=== PATIENT | female | born 1940 | race Caucasian/White ===

== ENCOUNTER 2016-09-25 23:35 | Inpatient (IN) | payer MEDICARE, BC ==
[~2016-09-25] VITALS: Ht 149.9 cm; Wt 57.6 kg
[~2016-09-25 23:35] MED LIST: ACET650T11 PO; ACID1TAB4 PO; ASCO500T10 PO; BENZ9GEL3 MM; CALC600T12 PO; CHOL200013 PO; CHOL4PAC9 PO; CYAN100T3 PO; DIPH50CA37 PO; LEVO175T7 PO; LOPE2CAP GT; LORA0.5T PO; MEMA5TAB PO; OMEP20TA68 PO; PROT946L PO; QUET25TA PO; ROPI0.253 PO; SERT25TA5 GT; TEMA7.5C2 PO; VALP250S11 PO
[2016-09-25] MEDS ORDERED: DIVA500T4 PO (23:58)
[2016-09-26] MEDS ORDERED: LEVO150T8 PO
[2016-09-26] MEDS ORDERED: MAGN400O4 PO (00:06)
[2016-09-26] MEDS ORDERED: HYDR-3326 PO (00:08)
[2016-09-26] MEDS ORDERED: PANT40TA2 PO (00:10)
[2016-09-26] MEDS ORDERED: TEMA7.5C PO (00:14)
[2016-09-26] MEDS ORDERED: RISP1TAB7 PO (00:16)
[2016-09-26] MEDS ORDERED: SIMV10TA6 PO (00:19)
[2016-09-26 00:21] LABS: BASOPHILS # (AUTO) 0.1 K/uL (0.0-0.2); BASOPHILS % (AUTO) 1.5 % (0.0-2.0); EOSINOPHILS # (AUTO) 0.1 K/uL (0.0-0.7); EOSINOPHILS % (AUTO) 1.6 % (0.0-7.0); HEMATOCRIT 37.4 % (37.0-47.0); HEMOGLOBIN 12.2 g/dL (12.0-16.0); LYMPHOCYTES # (AUTO) 1.4 K/uL (0.8-4.8); LYMPHOCYTES % (AUTO) 20.6 % (20.5-51.5); MEAN CORPUSCULAR HGB CONC 33 g/dL (32.0-37.0); MEAN CORPUSCULAR VOLUME 82.6 fL (81.0-99.0); MONOCYTES % (AUTO) 14.4 % (0.0-11.0); NEUTROPHILS # (AUTO) 4.4 K/uL (1.8-8.9); NEUTROPHILS % (AUTO) 61.9 % (38.5-71.5); PLATELET COUNT (AUTO) 202 K/uL (150-450); RED BLOOD CELL COUNT(AUTO) 4.52 MIL/uL (4.20-5.40); RED CELL DISTRIBUTION WIDTH 13.7 % (11.5-14.5)
[2016-09-26 00:23] LABS: CALCIUM 8.9 mg/dL (8.5-10.1); CARBON DIOXIDE 30 mmol/L (21-32); CHLORIDE 104 mmol/L (98-107); CREATININE 0.9 mg/dL (0.6-1.3); GLUCOSE 74 mg/dL (74-106); POTASSIUM 3.5 mmol/L (3.5-5.1); SODIUM SERUM 142 mmol/L (136-145); UREA NITROGEN, BLOOD 13 mg/dL (7-18)
[2016-09-26 00:35] LABS: *BILIRUBIN,URIN NEGATIVE (NEGATIVE); *BLOOD, URINE NEGATIVE (NEGATIVE); *CLARITY,URINE SLIGHTLY CLOUDY (CLEAR); *COLOR,URINE YELLOW (YELLOW); *KETONES,URINE NEGATIVE (NEGATIVE); *PROTEIN,URINE NEGATIVE (NEGATIVE); *UROBILINOGEN,URINE 0.2 E.U./dl (NORMAL); LEUKOCYTE ESTERASE ,URINE 1+ (NEGATIVE); NITRITE, URINE NEGATIVE (NEGATIVE); UGLUCOSE NEGATIVE (NEGATIVE)
[2016-09-26 00:38] LABS: THYROID STIMULATING HORMONE 2.526 mIU/mL (0.358-3.740)
[2016-09-26 00:38] LABS: *AMPHETAMINE, URINE NEGATIVE (NEGATIVE); *BARBITURATE, URINE NEGATIVE (NEGATIVE); *CANNABINOID, URINE NEGATIVE (NEGATIVE); *COCCAINE, URINE NEGATIVE (NEGATIVE); *OPIATE, URINE NEGATIVE (NEGATIVE); *PHENCYCLIDINE SCREEN,URINE NEGATIVE (NEGATIVE)
[2016-09-26] MEDS ORDERED: TUBE5VIA2 ID (00:39)
[2016-09-26 00:40] LABS: ACETAMINOPHEN < 2.0 ug/mL (10-30); ALANINE AMINOTRANSFERASE 12 U/L (14-59); ALBUMIN 2.7 g/dL (3.4-5.0); ALKALINE PHOSPHATASE 70 U/L (50-136); ASPARTATE AMINOTRANSFERASE 18 U/L (15-37); BILIRUBIN,DIRECT < 0.1 mg/dL (0.0-0.2); BILIRUBIN,TOTAL 0.2 mg/dL (0.2-1.0); VALPROIC ACID 10 ug/mL (50-100)
[2016-09-26 00:42] LABS: ETHANOL < 3 MG/DL (0-0)
[2016-09-26] MEDS ORDERED: SERT50TA PO (00:42)
[2016-09-26 00:47] LABS: BACTERIA,URINE MODERATE /HPF (NONE SEEN); SQUAMOUS EPITHELIAL CELL,UR FEW /HPF (NONE SEEN); WBC,URINE 20-50 /HPF (0-3)
[2016-09-26] MEDS ORDERED: MAG HYDROX/AL HYDROX/SIMETH 30 ML LIQUID UDC PO PRN (01:30)
[2016-09-26] MEDS ORDERED: ACETAMINOPHEN 325 MG TABLET PO PRN (01:30)
[2016-09-26] MEDS ORDERED: MAGNESIUM HYDROXIDE 30 ML LIQUID UDC PO PRN (01:30)
[2016-09-26] MEDS ORDERED: LORAZEPAM 0.5 MG TABLET PO PRN (01:30)
[2016-09-26] MEDS ORDERED: TEMAZEPAM 7.5 MG CAPSULE PO PRN (01:30)
[2016-09-26 02:25] VITALS: BP 145/83
[2016-09-26 07:30] VITALS: BP 112/64
[2016-09-26] MEDS ORDERED: DIVALPROEX 500 MG TABLET.DR PO SCH (15:00)
[2016-09-26] MEDS: risperiDONE 1 MG TABLET PO SCH ×2 (15:36→20:49)
[2016-09-26] MEDS: SERTRALINE HCL 50 MG TABLET PO SCH (15:36)
[2016-09-26 16:00] VITALS: BP 126/67
[2016-09-26] MEDS ORDERED: LOPERAMIDE HCL 2 MG CAPSULE GT PRN (16:30)
[2016-09-26] MEDS ORDERED: HYDROCODONE/APAP 5-325MG TABLET PO PRN (16:30)
[2016-09-26] MEDS ORDERED: LOPERAMIDE HCL 2 MG CAPSULE PO PRN (16:45)
[2016-09-26] MEDS ORDERED: Medication Not On Formulary EA (Protein Supplement (Promod) 30 ML) PO SCH (17:00)
[2016-09-26] MEDS: PROTEIN SUPPLEMENT (PROSTAT) 30 ML LIQUID PO SCH (17:00)
[2016-09-26] MEDS ORDERED: CHOLECALCIFEROL 2000 UNIT PO SCH (17:00)
[2016-09-26] MEDS: ropiniROLE 0.25 MG TABLET PO SCH (17:45)
[2016-09-26] MEDS: CALCIUM CARBONATE 600 MG TABLET PO SCH (17:45)
[2016-09-26] MEDS: SULFAMETH/TRIMETH 800/160 MG TABLET PO SCH (20:48)
[2016-09-26] MEDS: SIMVASTATIN 10 MG TABLET PO SCH (20:49)
[2016-09-26] MEDS: CHOLECALCIFEROL 1,000 UNIT TABLET PO SCH (20:49)
[2016-09-26] MEDS: DIVALPROEX SPRINKLE 125 MG CAP.SPRINK PO SCH (20:49)
[2016-09-26 21:10] VITALS: BP 121/62
[2016-09-27] MEDS: PANTOPRAZOLE SODIUM 40 MG TABLET.DR PO SCH ×2 (06:35→06:54)
[2016-09-27] MEDS: LEVOTHYROXINE SODIUM 150 MCG TABLET PO SCH (06:35)
[2016-09-27 08:00] VITALS: BP 107/61
[2016-09-27] MEDS: PROTEIN SUPPLEMENT (PROSTAT) 30 ML LIQUID PO SCH ×2 (08:00→17:00)
[2016-09-27] MEDS: SERTRALINE HCL 50 MG TABLET PO SCH (08:40)
[2016-09-27] MEDS: ropiniROLE 0.25 MG TABLET PO SCH ×3 (08:40→17:04)
[2016-09-27] MEDS: DIVALPROEX SPRINKLE 125 MG CAP.SPRINK PO SCH ×2 (08:40→20:17)
[2016-09-27] MEDS: ACIDOPHILUS/BULGARICUS CHEW TAB PO SCH (08:41)
[2016-09-27] MEDS: CYANOCOBALAMIN 1,000 MCG TABLET PO SCH (08:41)
[2016-09-27] MEDS: CALCIUM CARBONATE 600 MG TABLET PO SCH ×2 (08:41→17:04)
[2016-09-27] MEDS: ASCORBIC ACID 500 MG TABLET PO SCH (08:41)
[2016-09-27] MEDS: risperiDONE 1 MG TABLET PO SCH ×2 (08:41→20:17)
[2016-09-27] MEDS: CHOLECALCIFEROL 1,000 UNIT TABLET PO SCH ×2 (08:41→20:17)
[2016-09-27] MEDS: SULFAMETH/TRIMETH 800/160 MG TABLET PO SCH ×2 (08:53→20:17)
[2016-09-27] MEDS ORDERED: CYANOCOBALAMIN 100 MCG TABLET PO SCH (09:00)
[2016-09-27 16:00] VITALS: BP 115/54
[2016-09-27 19:59] VITALS: BP 111/64
[2016-09-27] MEDS: SIMVASTATIN 10 MG TABLET PO SCH (20:17)
[2016-09-28] MEDS: PANTOPRAZOLE SODIUM 40 MG TABLET.DR PO SCH (06:01)
[2016-09-28] MEDS: LEVOTHYROXINE SODIUM 150 MCG TABLET PO SCH (06:01)
[2016-09-28 07:30] VITALS: BP 106/59
[2016-09-28] MEDS: PROTEIN SUPPLEMENT (PROSTAT) 30 ML LIQUID PO SCH ×2 (08:00→16:05)
[2016-09-28] MEDS: DIVALPROEX SPRINKLE 125 MG CAP.SPRINK PO SCH ×2 (08:57→20:41)
[2016-09-28] MEDS: SERTRALINE HCL 50 MG TABLET PO SCH (08:57)
[2016-09-28] MEDS: CYANOCOBALAMIN 1,000 MCG TABLET PO SCH (08:58)
[2016-09-28] MEDS: SULFAMETH/TRIMETH 800/160 MG TABLET PO SCH ×2 (08:58→20:41)
[2016-09-28] MEDS: ASCORBIC ACID 500 MG TABLET PO SCH (08:58)
[2016-09-28] MEDS: ropiniROLE 0.25 MG TABLET PO SCH ×3 (08:58→16:05)
[2016-09-28] MEDS: CALCIUM CARBONATE 600 MG TABLET PO SCH ×2 (08:58→16:05)
[2016-09-28] MEDS: ACIDOPHILUS/BULGARICUS CHEW TAB PO SCH (08:58)
[2016-09-28] MEDS: risperiDONE 1 MG TABLET PO SCH ×2 (08:58→20:41)
[2016-09-28] MEDS: CHOLECALCIFEROL 1,000 UNIT TABLET PO SCH ×2 (08:58→20:41)
[2016-09-28] MEDS ORDERED: INFLUENZA VACCINE 0.5 ML DISP.SYRIN IM ONE (15:15)
[2016-09-28 16:00] VITALS: BP 132/55
[2016-09-28 20:00] VITALS: BP 101/60
[2016-09-28] MEDS: SIMVASTATIN 10 MG TABLET PO SCH (20:41)
[2016-09-29] MEDS: LEVOTHYROXINE SODIUM 150 MCG TABLET PO SCH (06:29)
[2016-09-29] MEDS: PANTOPRAZOLE SODIUM 40 MG TABLET.DR PO SCH (06:29)
[2016-09-29 07:30] VITALS: BP 108/51
[2016-09-29] MEDS: PROTEIN SUPPLEMENT (PROSTAT) 30 ML LIQUID PO SCH ×2 (08:00→16:16)
[2016-09-29] MEDS: CYANOCOBALAMIN 1,000 MCG TABLET PO SCH (08:06)
[2016-09-29] MEDS: ropiniROLE 0.25 MG TABLET PO SCH ×3 (08:06→16:16)
[2016-09-29] MEDS: ACIDOPHILUS/BULGARICUS CHEW TAB PO SCH (08:06)
[2016-09-29] MEDS: SULFAMETH/TRIMETH 800/160 MG TABLET PO SCH ×2 (08:07→20:26)
[2016-09-29] MEDS: DIVALPROEX SPRINKLE 125 MG CAP.SPRINK PO SCH ×2 (08:07→20:26)
[2016-09-29] MEDS: CALCIUM CARBONATE 600 MG TABLET PO SCH ×2 (08:07→16:16)
[2016-09-29] MEDS: CHOLECALCIFEROL 1,000 UNIT TABLET PO SCH ×2 (08:07→20:26)
[2016-09-29] MEDS: SERTRALINE HCL 50 MG TABLET PO SCH (08:07)
[2016-09-29] MEDS: risperiDONE 1 MG TABLET PO SCH ×2 (08:08→20:26)
[2016-09-29] MEDS: ASCORBIC ACID 500 MG TABLET PO SCH (08:08)
[2016-09-29 16:00] VITALS: BP 122/59
[2016-09-29] MEDS: SIMVASTATIN 10 MG TABLET PO SCH (20:26)
[2016-09-29 21:32] VITALS: BP 123/69
[2016-09-30] MEDS: LEVOTHYROXINE SODIUM 150 MCG TABLET PO SCH (06:22)
[2016-09-30] MEDS: PANTOPRAZOLE SODIUM 40 MG TABLET.DR PO SCH (06:22)
[2016-09-30 07:30] VITALS: BP 100/61
[2016-09-30] MEDS: PROTEIN SUPPLEMENT (PROSTAT) 30 ML LIQUID PO SCH ×2 (08:00→16:53)
[2016-09-30] MEDS: CHOLECALCIFEROL 1,000 UNIT TABLET PO SCH ×2 (08:41→20:03)
[2016-09-30] MEDS: ACIDOPHILUS/BULGARICUS CHEW TAB PO SCH (08:41)
[2016-09-30] MEDS: CYANOCOBALAMIN 1,000 MCG TABLET PO SCH (08:41)
[2016-09-30] MEDS: ASCORBIC ACID 500 MG TABLET PO SCH (08:41)
[2016-09-30] MEDS: DIVALPROEX SPRINKLE 125 MG CAP.SPRINK PO SCH ×2 (08:41→20:03)
[2016-09-30] MEDS: CALCIUM CARBONATE 600 MG TABLET PO SCH ×2 (08:41→16:50)
[2016-09-30] MEDS: risperiDONE 1 MG TABLET PO SCH ×2 (08:41→20:03)
[2016-09-30] MEDS: SULFAMETH/TRIMETH 800/160 MG TABLET PO SCH ×2 (08:41→20:03)
[2016-09-30] MEDS: ropiniROLE 0.25 MG TABLET PO SCH ×3 (08:42→16:50)
[2016-09-30] MEDS: SERTRALINE HCL 50 MG TABLET PO SCH (08:42)
[2016-09-30 15:18] VITALS: BP 90/52
[2016-09-30] MEDS: SIMVASTATIN 10 MG TABLET PO SCH (20:03)
[2016-09-30 20:18] VITALS: BP 96/54
[2016-09-30 20:40] VITALS: BP 117/69
[2016-10-01] MEDS: LEVOTHYROXINE SODIUM 150 MCG TABLET PO SCH (06:23)
[2016-10-01] MEDS: PANTOPRAZOLE SODIUM 40 MG TABLET.DR PO SCH (06:23)
[2016-10-01 07:30] VITALS: BP 102/54
[2016-10-01] MEDS: PROTEIN SUPPLEMENT (PROSTAT) 30 ML LIQUID PO SCH ×2 (07:55→17:00)
[2016-10-01 08:05] LABS: BASOPHILS % (AUTO) 0.1 % (0.0-2.0); EOSINOPHILS # (AUTO) 0.1 K/uL (0.0-0.7); EOSINOPHILS % (AUTO) 1.3 % (0.0-7.0); HEMATOCRIT 34.4 % (37.0-47.0); HEMOGLOBIN 11.5 g/dL (12.0-16.0); MEAN CORPUSCULAR HEMOGLOBIN 28.4 uug (27.0-31.0); MEAN CORPUSCULAR HGB CONC 33 g/dL (32.0-37.0); MEAN CORPUSCULAR VOLUME 84.9 fL (81.0-99.0); MONOCYTES # (AUTO) 0.7 K/uL (0.1-1.30); MONOCYTES % (AUTO) 9.3 % (0.0-11.0); NEUTROPHILS % (AUTO) 76.3 % (38.5-71.5); PLATELET COUNT (AUTO) 186 K/uL (150-450); RED BLOOD CELL COUNT(AUTO) 4.05 MIL/uL (4.20-5.40); RED CELL DISTRIBUTION WIDTH 14.6 % (11.5-14.5); WHITE BLOOD COUNT (AUTO) 7.9 K/uL (4.0-11.2)
[2016-10-01 08:20] LABS: ALBUMIN 2.5 g/dL (3.4-5.0); BILIRUBIN,TOTAL 0.2 mg/dL (0.2-1.0); CALCIUM 8.5 mg/dL (8.5-10.1); CREATININE 1.1 mg/dL (0.6-1.3); MAGNESIUM 1.4 mg/dL (1.8-2.4); POTASSIUM 3.8 mmol/L (3.5-5.1); TOTAL PROTEIN, SERUM 6.5 g/dL (6.4-8.2)
[2016-10-01] MEDS: SULFAMETH/TRIMETH 800/160 MG TABLET PO SCH ×2 (08:59→20:13)
[2016-10-01] MEDS: CALCIUM CARBONATE 600 MG TABLET PO SCH ×2 (09:00→17:38)
[2016-10-01] MEDS: ASCORBIC ACID 500 MG TABLET PO SCH (09:00)
[2016-10-01] MEDS: ropiniROLE 0.25 MG TABLET PO SCH ×3 (09:00→17:37)
[2016-10-01] MEDS: SERTRALINE HCL 50 MG TABLET PO SCH (09:00)
[2016-10-01] MEDS: CYANOCOBALAMIN 1,000 MCG TABLET PO SCH (09:00)
[2016-10-01] MEDS: DIVALPROEX SPRINKLE 125 MG CAP.SPRINK PO SCH ×2 (09:00→20:13)
[2016-10-01] MEDS: ACIDOPHILUS/BULGARICUS CHEW TAB PO SCH (09:00)
[2016-10-01] MEDS: CHOLECALCIFEROL 1,000 UNIT TABLET PO SCH ×2 (09:00→20:13)
[2016-10-01] MEDS: risperiDONE 1 MG TABLET PO SCH ×2 (09:00→20:13)
[2016-10-01] MEDS ORDERED: MAGNESIUM OXIDE 400 MG TABLET PO ONE (13:00)
[2016-10-01 15:34] VITALS: BP 112/55
[2016-10-01 19:58] VITALS: BP 120/54
[2016-10-01] MEDS: SIMVASTATIN 10 MG TABLET PO SCH (20:13)
[2016-10-02] MEDS: PANTOPRAZOLE SODIUM 40 MG TABLET.DR PO SCH (06:37)
[2016-10-02] MEDS: LEVOTHYROXINE SODIUM 150 MCG TABLET PO SCH (06:37)
[2016-10-02 07:30] VITALS: BP 112/60
[2016-10-02] MEDS: PROTEIN SUPPLEMENT (PROSTAT) 30 ML LIQUID PO SCH (08:00)
[2016-10-02] MEDS: CALCIUM CARBONATE 600 MG TABLET PO SCH (08:22)
[2016-10-02] MEDS: DIVALPROEX SPRINKLE 125 MG CAP.SPRINK PO SCH (08:22)
[2016-10-02] MEDS: CYANOCOBALAMIN 1,000 MCG TABLET PO SCH (08:23)
[2016-10-02] MEDS: ASCORBIC ACID 500 MG TABLET PO SCH (08:24)
[2016-10-02] MEDS: SERTRALINE HCL 50 MG TABLET PO SCH (08:24)
[2016-10-02] MEDS: SULFAMETH/TRIMETH 800/160 MG TABLET PO SCH (08:24)
[2016-10-02] MEDS: risperiDONE 1 MG TABLET PO SCH (08:24)
[2016-10-02] MEDS: ropiniROLE 0.25 MG TABLET PO SCH ×2 (08:24→12:37)
[2016-10-02] MEDS: CHOLECALCIFEROL 1,000 UNIT TABLET PO SCH (08:25)
[2016-10-02] MEDS: ACIDOPHILUS/BULGARICUS CHEW TAB PO SCH (08:25)
== END 2016-10-02 15:15 | DRG 885 ==
LOC: ER 23:39 → GPS 09-26 00:47
PROVIDERS: ADMIT Psychiatry & Neurology Psychiatry; ATTEND Psychiatry & Neurology Psychiatry
DX: F31.64 Bipolar disorder, current episode mixed, severe, with psychotic features (principal); E43 Unspecified severe protein-calorie malnutrition; N18.9 Chronic kidney disease, unspecified; G93.40 Encephalopathy, unspecified; D68.59 Other primary thrombophilia; F03.91 Unspecified dementia, unspecified severity, with behavioral disturbance; N39.0 Urinary tract infection, site not specified; I50.9 Heart failure, unspecified; E78.5 Hyperlipidemia, unspecified; E03.9 Hypothyroidism, unspecified; K21.9 Gastro-esophageal reflux disease without esophagitis; Z73.6 Limitation of activities due to disability; F41.9 Anxiety disorder, unspecified; D64.9 Anemia, unspecified; I12.9 Hypertensive chronic kidney disease with stage 1 through stage 4 chronic kidney disease, or unspecified chronic kidney disease; E83.42 Hypomagnesemia; I25.2 Old myocardial infarction; Z79.899 Other long term (current) drug therapy; Z91.19 Patient's noncompliance with other medical treatment and regimen; I25.10 Atherosclerotic heart disease of native coronary artery without angina pectoris; M41.9 Scoliosis, unspecified
CPT/HCPCS: 36415; 80164; 80307; 83735; 84100; 84443; 85025; 90686; 93005; 97001; 97116; 97530; A4663; G0480-TC; G6040-TC; J8499